=== PATIENT | female | born 1970 | race Caucasian/White ===

== ENCOUNTER 2024-01-20 17:23 | Emergency (ER) | payer OTHER ==
[~2024-01-20] VITALS: Ht 157.5 cm; Wt 81.2 kg
[2024-01-20 18:30] VITALS: BP 132/82; PULSE 112; RESP 16; TEMP 99; O2SAT 95
[2024-01-20] MEDS ORDERED: ACET500T58 PO (19:47)
[2024-01-20] MEDS ORDERED: CYCL-837 PO (19:47)
[2024-01-20] MEDS: ACETAMINOPHEN 325 MG TAB PO ONE (20:01)
== END 2024-01-20 20:55 | disposition home or self-care (01) ==
LOC: ER 17:23
DX: S16.1XXA Strain of muscle, fascia and tendon at neck level, initial encounter (principal); S00.03XA Contusion of scalp, initial encounter; Z90.49 Acquired absence of other specified parts of digestive tract; W22.8XXA Striking against or struck by other objects, initial encounter; Y93.89 Activity, other specified; Y92.89 Other specified places as the place of occurrence of the external cause; Y99.8 Other external cause status
CPT/HCPCS: 70450; 72040